=== PATIENT | male | born 1980 | race Caucasian/White ===

== ENCOUNTER 2016-07-22 14:21 | Emergency (ER) | payer BC ==
--- NOTE | 2016-08-04 18:56 | ER ---
ADMIT: 07/22/2016 RM/LOC: ER [facility] MR#: [id number] [facility] [address] [place], [place] [address] ESTELLA MAI [address] [address] Emergency Room Report SEX: M AGE: 35 : 1980 DATE: 07/22/2016 ADDENDUM: A 35-year-old male coming in with chest wall pain. He is back out at [employer] the line. This is an overuse syndrome. Ice, Tylenol, light duty 1 week and then he back to regular duty. Recheck if not improving. CONDITION ON DISCHARGE: Good. Samuel Gerardo MD/ beto JOB #: [id number] CC: Samuel Gerardo MD, Attending Physician Bebo Escobar MD, Family Physician
== END 2016-07-22 15:55 | disposition home or self-care (01) ==
LOC: ER 14:21
DX: R07.89 Other chest pain (principal); M70.80 Other soft tissue disorders related to use, overuse and pressure of unspecified site